=== PATIENT | female | born 1935 | race Caucasian/White ===

== ENCOUNTER 2017-10-08 15:16 | Inpatient (IN) | payer MEDICARE, BC ==
[~2017-10-08] VITALS: Ht 167.6 cm; Wt 94.1 kg
[~2017-10-08 15:16] MED LIST: BETA1TAB14 PO; CHOL100046 PO; CYAN10006 IM; DULO60CA64 PO; LEVO50TA8 PO; MULT1TAB74 PO; PREG150C PO; SIMV20TA PO
[2017-10-08 16:04] LABS: BASOPHILS % (AUTO) 0 % (0-1); EOSINOPHILS # (AUTO) 0.1 X10'3 (0-0.9); EOSINOPHILS % (AUTO) 1.1 % (0-6); HEMATOCRIT 44.1 % (35.0-45.0); HEMOGLOBIN 14.6 g/dl (12.0-16.0); LYMPHOCYTES # (AUTO) 1.9 X10'3 (1.1-4.8); LYMPHOCYTES % (AUTO) 14.3 % (21-51); MEAN CORPUSCULAR HEMOGLOBIN 29.6 PG (27.0-31.0); MEAN CORPUSCULAR VOLUME 89.6 FL (78-98); NEUTROPHILS # (AUTO) 10.6 X10'3 (1.8-7.7); NEUTROPHILS % (AUTO) 77.6 % (42-75); PLATELET COUNT 277 X10'3 (140-440); RED BLOOD COUNT 4.92 X10'6 (4.20-5.60); WHITE BLOOD COUNT 13.7 X10'3 (4.5-11.0)
[2017-10-08 16:13] LABS: PARTIAL THROMBOPLASTIN TIME 23 SECONDS (22-32)
[2017-10-08] MEDS ORDERED: HYDROcodone/acetaminophen 5mg/325mg tablet PO ONE (16:20)
[2017-10-08] MEDS ORDERED: diazepam 5mg tablet PO ONE (16:20)
[2017-10-08] MEDS ORDERED: ondansetron 4mg rapidly disintigrating tab PO ONE (16:20)
[2017-10-08] MEDS ORDERED: dexamethasone 4mg tablet PO ONE (16:20)
[2017-10-08 16:24] LABS: ALANINE AMINOTRANSFERASE 39 U/L (12-78); ALBUMIN 3.9 G/DL (3.4-5.0); ALBUMIN/GLOBULIN RATIO 1.2 (1.1-1.5); ALKALINE PHOSPHATASE 109 IU/L (46-116); ANION GAP 8 (8-16); ASPARTATE AMINO TRANSFERASE 45 U/L (10-37); BILIRUBIN,TOTAL 0.4 MG/DL (0.1-1.0); BLOOD UREA NITROGEN 15 MG/DL (7-18); BUN/CREATININE RATIO 16.7 (6.6-38.0); CHLORIDE 106 MMOL/L (99-107); ETHANOL < 0.010 GM/DL (0.0-0.010); GLUCOSE 130 MG/DL (70-104); SODIUM 145 MMOL/L (135-145); TOTAL CARBON DIOXIDE 30.8 MMOL/L (24-32); TOTAL PROTEIN 7.2 G/DL (6.4-8.2); eGFR 60 ML/MIN
[2017-10-08] MEDS ORDERED: aspirin 325mg tablet PO ONE (16:25)
[2017-10-08 18:00] LABS: URINE AMPHETAMINE SCREEN NEGATIVE (Neg); URINE BARBITUATE SCREEN NEGATIVE (Neg); URINE BENZODIAZEPINES SCREEN NEGATIVE (Neg); URINE CANNABINOID SCREEN NEGATIVE (Neg); URINE COCAINE SCREEN NEGATIVE (Neg); URINE METHADONE SCREEN NEGATIVE (Neg); URINE OPIATE SCREEN POSITIVE (Neg); URINE PHENCYCLIDINE SCREEN NEGATIVE (Neg)
[2017-10-08 18:08] LABS: OCCULT BLOOD STOOL NEGATIVE (Neg)
[2017-10-08] MEDS ORDERED: mag hydrox/Alum hydrox/simeth 30ml oral suspension PO PRN (19:30)
[2017-10-08] MEDS ORDERED: acetaminophen 325mg tablet PO PRN (19:30)
[2017-10-08] MEDS ORDERED: magnesium hydroxide 30ml (MOM) UD suspension PO PRN (19:30)
[2017-10-08] MEDS ORDERED: ondansetron/PF 4mg/2ml inj IV PRN (19:30)
[2017-10-08 19:55] LABS: HEMOGLOBIN A1C 5.7 % (4.5-6.2)
[2017-10-08 22:00] VITALS: BP 166/92
[2017-10-09] VITALS (7 sets, daily range): BP systolic 148–174; BP diastolic 71–87
[2017-10-09] MEDS: HYDROcodone/acetaminophen 10/325mg tab PO PRN ×5 (02:53→19:19)
[2017-10-09] MEDS: levoTHYROXINE 25mcg tablet PO SCH (07:19)
[2017-10-09 07:45] LABS: ALANINE AMINOTRANSFERASE 53 U/L (12-78); ALBUMIN/GLOBULIN RATIO 1.1 (1.1-1.5); ALKALINE PHOSPHATASE 102 IU/L (46-116); ANION GAP 13 (8-16); ASPARTATE AMINO TRANSFERASE 95 U/L (10-37); BILIRUBIN,TOTAL 0.5 MG/DL (0.1-1.0); BLOOD UREA NITROGEN 19 MG/DL (7-18); CALCIUM 9.7 MG/DL (8.5-10.1); CHLORIDE 105 MMOL/L (99-107); CHOL/HDL RATIO 2.9 (0.00-4.99); CHOLESTEROL 259 MG/DL (0-200); GLUCOSE 144 MG/DL (70-104); HDL CHOLESTEROL 90 MG/DL (35-60); LDL CHOLESTEROL 154 MG/DL (50-100); SODIUM 145 MMOL/L (135-145); TOTAL CARBON DIOXIDE 27.2 MMOL/L (24-32); TOTAL PROTEIN 7.5 G/DL (6.4-8.2); TRIGLYCERIDES 83 MG/DL (20-135); eGFR 53 ML/MIN
[2017-10-09 07:52] LABS: BASOPHILS % (AUTO) 0 % (0-1); EOSINOPHILS % (AUTO) 0 % (0-6); HEMATOCRIT 43.3 % (35.0-45.0); HEMOGLOBIN 15.1 g/dl (12.0-16.0); LYMPHOCYTES # (AUTO) 1.6 X10'3 (1.1-4.8); LYMPHOCYTES % (AUTO) 14.4 % (21-51); MEAN CORPUSCULAR HEMOGLOBIN 30.7 PG (27.0-31.0); MEAN CORPUSCULAR HGB CONC 34.8 % (33.0-36.5); MEAN CORPUSCULAR VOLUME 88.2 FL (78-98); MEAN PLATELET VOLUME 7.6 FL (7.4-10.4); MONOCYTES # (AUTO) 0.4 X10'3 (0-0.9); MONOCYTES % (AUTO) 3.8 % (2-12); NEUTROPHILS # (AUTO) 8.8 X10'3 (1.8-7.7); NEUTROPHILS % (AUTO) 81.8 % (42-75); PLATELET COUNT 277 X10'3 (140-440); RED BLOOD COUNT 4.91 X10'6 (4.20-5.60); RED CELL DISTRIBUTION WIDTH 13.6 % (11.5-14.5); WHITE BLOOD COUNT 10.8 X10'3 (4.5-11.0)
[2017-10-09] MEDS ORDERED: non-formulary drug (Levothyroxine Sodium 1 TAB) PO SCH (08:00)
[2017-10-09] MEDS: aspirin 81mg tab.chew PO SCH (11:16)
[2017-10-09] MEDS ORDERED: LEVO100T9 PO (12:01)
[2017-10-09] MEDS: atorvastatin 20mg tablet PO SCH (20:02)
[2017-10-10] MEDS: HYDROcodone/acetaminophen 10/325mg tab PO PRN ×4 (02:19→21:36)
[2017-10-10 04:00] VITALS: BP 153/88
[2017-10-10 05:00] VITALS: BP 139/79
[2017-10-10 06:18] LABS: BASOPHILS % (AUTO) 0 % (0-1); EOSINOPHILS # (AUTO) 0.1 X10'3 (0-0.9); EOSINOPHILS % (AUTO) 0.8 % (0-6); HEMATOCRIT 43.3 % (35.0-45.0); HEMOGLOBIN 14.4 g/dl (12.0-16.0); LYMPHOCYTES # (AUTO) 3.2 X10'3 (1.1-4.8); MEAN CORPUSCULAR HEMOGLOBIN 30.2 PG (27.0-31.0); MEAN CORPUSCULAR HGB CONC 33.2 % (33.0-36.5); MEAN CORPUSCULAR VOLUME 90.9 FL (78-98); MEAN PLATELET VOLUME 7.4 FL (7.4-10.4); MONOCYTES # (AUTO) 0.9 X10'3 (0-0.9); MONOCYTES % (AUTO) 7.1 % (2-12); NEUTROPHILS # (AUTO) 8.5 X10'3 (1.8-7.7); NEUTROPHILS % (AUTO) 67.1 % (42-75); PLATELET COUNT 250 X10'3 (140-440); RED BLOOD COUNT 4.77 X10'6 (4.20-5.60); RED CELL DISTRIBUTION WIDTH 14.4 % (11.5-14.5); WHITE BLOOD COUNT 12.7 X10'3 (4.5-11.0)
[2017-10-10 06:33] LABS: PROTHROMBIN TIME 10.2 SECONDS (9.0-12.0)
[2017-10-10 06:50] LABS: ALANINE AMINOTRANSFERASE 64 U/L (12-78); ALBUMIN 3.5 G/DL (3.4-5.0); ALBUMIN/GLOBULIN RATIO 1.2 (1.1-1.5); ALKALINE PHOSPHATASE 84 IU/L (46-116); ANION GAP 10 (8-16); ASPARTATE AMINO TRANSFERASE 111 U/L (10-37); BILIRUBIN,TOTAL 0.5 MG/DL (0.1-1.0); BLOOD UREA NITROGEN 27 MG/DL (7-18); CALCIUM 9.4 MG/DL (8.5-10.1); CHLORIDE 105 MMOL/L (99-107); GLUCOSE 107 MG/DL (70-104); POTASSIUM 3.9 MMOL/L (3.5-5.1); SODIUM 144 MMOL/L (135-145); TOTAL CARBON DIOXIDE 28.6 MMOL/L (24-32); TOTAL PROTEIN 6.5 G/DL (6.4-8.2); eGFR 53 ML/MIN
[2017-10-10] MEDS: aspirin 81mg tab.chew PO SCH (08:36)
[2017-10-10] MEDS: levoTHYROXINE 25mcg tablet PO SCH (08:36)
[2017-10-10 10:00] VITALS: BP 129/64
[2017-10-10 14:00] VITALS: BP 144/70
[2017-10-10 18:00] VITALS: BP 150/73
[2017-10-10] MEDS: atorvastatin 20mg tablet PO SCH (21:01)
[2017-10-10 22:00] VITALS: BP 141/66
[2017-10-10] MEDS: LORazepam 0.5 MG tablet PO PRN (22:45)
[2017-10-11] MEDS: HYDROcodone/acetaminophen 10/325mg tab PO PRN ×3 (01:36→11:28)
[2017-10-11 05:00] VITALS: BP 157/93
[2017-10-11] MEDS: levoTHYROXINE 25mcg tablet PO SCH (07:14)
[2017-10-11] MEDS: LORazepam 0.5 MG tablet PO PRN ×2 (07:14→11:28)
[2017-10-11 07:15] LABS: BASOPHILS % (AUTO) 0.4 % (0-1); EOSINOPHILS # (AUTO) 0.2 X10'3 (0-0.9); EOSINOPHILS % (AUTO) 1.4 % (0-6); HEMATOCRIT 46.4 % (35.0-45.0); HEMOGLOBIN 15.4 g/dl (12.0-16.0); LYMPHOCYTES # (AUTO) 3.6 X10'3 (1.1-4.8); LYMPHOCYTES % (AUTO) 31.8 % (21-51); MEAN CORPUSCULAR HEMOGLOBIN 30.2 PG (27.0-31.0); MEAN CORPUSCULAR HGB CONC 33.3 % (33.0-36.5); MEAN CORPUSCULAR VOLUME 90.7 FL (78-98); MEAN PLATELET VOLUME 7.2 FL (7.4-10.4); MONOCYTES # (AUTO) 0.9 X10'3 (0-0.9); NEUTROPHILS # (AUTO) 6.6 X10'3 (1.8-7.7); NEUTROPHILS % (AUTO) 58.4 % (42-75); PLATELET COUNT 285 X10'3 (140-440); RED BLOOD COUNT 5.12 X10'6 (4.20-5.60); WHITE BLOOD COUNT 11.3 X10'3 (4.5-11.0)
[2017-10-11 07:30] LABS: PROTHROMBIN TIME 9.9 SECONDS (9.0-12.0)
[2017-10-11 07:36] LABS: ALANINE AMINOTRANSFERASE 59 U/L (12-78); ALBUMIN 3.8 G/DL (3.4-5.0); ALBUMIN/GLOBULIN RATIO 1.1 (1.1-1.5); ALKALINE PHOSPHATASE 95 IU/L (46-116); ANION GAP 7 (8-16); ASPARTATE AMINO TRANSFERASE 63 U/L (10-37); BILIRUBIN,TOTAL 0.5 MG/DL (0.1-1.0); BLOOD UREA NITROGEN 27 MG/DL (7-18); BUN/CREATININE RATIO 24.5 (6.6-38.0); CALCIUM 9.7 MG/DL (8.5-10.1); CHLORIDE 106 MMOL/L (99-107); GLUCOSE 129 MG/DL (70-104); POTASSIUM 4.3 MMOL/L (3.5-5.1); SODIUM 143 MMOL/L (135-145); TOTAL CARBON DIOXIDE 30.5 MMOL/L (24-32); TOTAL PROTEIN 7.2 G/DL (6.4-8.2); eGFR 48 ML/MIN
[2017-10-11] MEDS ORDERED: clopidogrel 75mg tablet PO SCH (08:00)
[2017-10-11 12:25] VITALS: BP 163/86
== END 2017-10-11 12:10 | DRG 64 ==
LOC: ER 15:16 → ED HOLD 19:26 → ORTHO 4S 20:19
PROVIDERS: ADMIT Internal Medicine; ATTEND Internal Medicine
DX: I63.9 Cerebral infarction, unspecified (principal); G93.40 Encephalopathy, unspecified; G81.94 Hemiplegia, unspecified affecting left nondominant side; E03.9 Hypothyroidism, unspecified; E78.00 Pure hypercholesterolemia, unspecified; E78.5 Hyperlipidemia, unspecified; G89.29 Other chronic pain; I10 Essential (primary) hypertension; K52.9 Noninfective gastroenteritis and colitis, unspecified; M54.41 Lumbago with sciatica, right side; Z60.2 Problems related to living alone; Z96.642 Presence of left artificial hip joint; Z96.651 Presence of right artificial knee joint; Z79.899 Other long term (current) drug therapy; Z79.01 Long term (current) use of anticoagulants; Z79.82 Long term (current) use of aspirin
CPT/HCPCS: 36415; 70450; 70551; 71045; 80053; 80061; 80305; 80320; 82272; 82948; 83036; 84439; 84443; 85025; 85610; 85730; 87070; 92616; 93005; 93306; 93880; 97110; 97116; 97162; 97530; 99285; A4315; A6212; J8540

== ENCOUNTER 2019-08-26 22:05 | Emergency (ER) | payer MEDICARE, BC ==
[~2019-08-26] VITALS: Ht 167.6 cm; Wt 84.1 kg
[~2019-08-26 22:05] MED LIST changes: -DULO60CA64 PO; +DULO60CA65 PO; +LEVO100T9 PO; -LEVO50TA8 PO; -PREG150C PO
[2019-08-26] MEDS ORDERED: proparacaine 0.5% ophthalmic drops 15ml EACHEYE ONE (23:00)
[2019-08-26 23:13] VITALS: BP 127/62
[2019-08-26] MEDS ORDERED: ciprofloxacin 0.3% 2.5ml ophthalmic solution LEFTEYE ONE (23:40)
[2019-08-26] MEDS ORDERED: CIPR2.5D18 EACHEYE (23:43)
== END 2019-08-27 00:04 | disposition home or self-care (01) ==
LOC: ER 22:06
DX: H59.89 Other postprocedural complications and disorders of eye and adnexa, not elsewhere classified (principal); H16.002 Unspecified corneal ulcer, left eye; E78.00 Pure hypercholesterolemia, unspecified; E03.9 Hypothyroidism, unspecified; G89.29 Other chronic pain; Z98.890 Other specified postprocedural states; Z90.89 Acquired absence of other organs; Z60.2 Problems related to living alone; Z86.73 Personal history of transient ischemic attack (TIA), and cerebral infarction without residual deficits; Z79.899 Other long term (current) drug therapy; Y83.8 Other surgical procedures as the cause of abnormal reaction of the patient, or of later complication, without mention of misadventure at the time of the procedure
CPT/HCPCS: 99284; 99285

== ENCOUNTER 2021-06-10 21:22 | Emergency (ER) | payer BC, MEDICARE ==
[~2021-06-10] VITALS: Ht 167.6 cm; Wt 99.0 kg
[~2021-06-10 21:22] MED LIST changes: +CIPR2.5D21 EACHEYE; +MULT-620 PO; -MULT1TAB74 PO
[2021-06-10] MEDS ORDERED: ondansetron/PF 4mg/2ml inj IV ONE (22:40)
[2021-06-10] MEDS ORDERED: normal saline 1000ml 1,000 ML IV ONE (22:40)
[2021-06-10] MEDS ORDERED: morphine 4 MG/ML inj SYRINge IV ONE (22:40)
[2021-06-10 23:02] LABS: BASOPHILS # (AUTO) 0.2 X10'3 (0-0.2); EOSINOPHILS # (AUTO) 0.1 X10'3 (0-0.9); EOSINOPHILS % (AUTO) 0.4 % (0-6); HEMATOCRIT 47.4 % (35.0-45.0); HEMOGLOBIN 15.8 g/dl (12.0-16.0); LYMPHOCYTES % (AUTO) 13.9 % (21-51); MEAN CORPUSCULAR HEMOGLOBIN 30.7 PG (27.0-31.0); MEAN CORPUSCULAR HGB CONC 33.4 g/dL (33.0-36.5); MEAN CORPUSCULAR VOLUME 91.7 FL (78-98); MEAN PLATELET VOLUME 7.7 FL (7.4-10.4); MONOCYTES # (AUTO) 0.8 X10'3 (0-0.9); MONOCYTES % (AUTO) 5.6 % (2-12); NEUTROPHILS # (AUTO) 11.6 X10'3 (1.8-7.7); NEUTROPHILS % (AUTO) 79.1 % (42-75); PLATELET COUNT 327 X10'3 (140-440); RED BLOOD COUNT 5.17 X10'6 (4.20-5.60); RED CELL DISTRIBUTION WIDTH 13.5 % (11.5-14.5); WHITE BLOOD COUNT 14.7 X10'3 (4.5-11.0)
[2021-06-10 23:21] LABS: ALANINE AMINOTRANSFERASE 16 U/L (12-78); ALBUMIN 3.9 G/DL (3.4-5.0); ALBUMIN/GLOBULIN RATIO 1.2 (1.1-1.5); ALKALINE PHOSPHATASE 84 IU/L (46-116); ANION GAP 10 (8-16); ASPARTATE AMINO TRANSFERASE 14 U/L (10-37); BILIRUBIN,DIRECT 0.1 MG/DL (0-0.3); BILIRUBIN,TOTAL 0.4 MG/DL (0.1-1.0); BLOOD UREA NITROGEN 20 MG/DL (7-18); BUN/CREATININE RATIO 19.4 (6.6-38.0); CHLORIDE 106 MMOL/L (99-107); CREATININE 1.03 MG/DL (0.40-0.90); GLUCOSE 127 MG/DL (70-104); LIPASE 146 U/L (73-393); POTASSIUM 3.4 MMOL/L (3.5-5.1); SODIUM 144 MMOL/L (135-145); TOTAL PROTEIN 7.1 G/DL (6.4-8.2); eGFR 51 ML/MIN
[2021-06-10] MEDS ORDERED: diphenhydrAMINE 25mg capsule PO ONE (23:30)
[2021-06-10] MEDS ORDERED: metoclopramide 5 mg/ml inj IM ONE (23:30)
--- NOTE | 2021-06-11 00:01 | NUR ---
PER INSURANCE ACCOUNT MANAGER; NO ZOFRAN/MORPHINE/IVF FOR THIS PT; MD IS READY FOR DC
[2021-06-11 03:54] LABS: COLOR,URINE YELLOW (Yellow); UA COLLECTION TYPE STRAIGHT CATH
[2021-06-11 03:55] LABS: CLARITY,URINE CLEAR (Clear); GLUCOSE, URINE NEGATIVE (Neg); KETONES,URINE 80 mg/dl (Neg); PH,URINE 6.5 (4.8-8.0); PROTEIN,URINE 30 mg/dl (Neg)
[2021-06-11 03:56] LABS: LEUKOCYTE ESTERASE ,URINE NEGATIVE (Neg); NITRITES, URINE NEGATIVE (Neg); OCCULT BLOOD,URINE TRACE-INTACT (Neg); UROBILINOGEN,URINE 0.2 E.U/dL (0.2-1.0)
[2021-06-11 04:00] LABS: WBC,URINE NONE SEEN /HPF (0-4)
[2021-06-11 04:01] LABS: BACTERIA,URINE NONE SEEN /HPF (Neg); RBC,URINE NONE SEEN /HPF (0-2); SQUAMOUS EPITHELIAL CELL,UR FEW /LPF (FEW)
[2021-06-11] MEDS ORDERED: iohexol 300mg/ml 100ml inj. ONE (04:34)
[2021-06-11] MEDS ORDERED: normal saline 1000ml 1,000 ML IVB ONE (04:40)
[2021-06-11 08:51] VITALS: BP 124/62
[2021-06-11] MEDS ORDERED: ondansetron/PF 4mg/2ml inj IV ONE (09:05)
[2021-06-11] MEDS ORDERED: ONDA4TAB6 PO (09:05)
[2021-06-11] MEDS ORDERED: ondansetron 4mg rapidly disintigrating tab ONE (09:25)
== END 2021-06-11 09:21 | disposition home or self-care (01) ==
LOC: ER 21:23
DX: R51.9 Headache, unspecified (principal); Z20.822 Contact with and (suspected) exposure to COVID-19; R11.2 Nausea with vomiting, unspecified; R19.7 Diarrhea, unspecified; M19.90 Unspecified osteoarthritis, unspecified site; E78.00 Pure hypercholesterolemia, unspecified; E03.9 Hypothyroidism, unspecified; G89.29 Other chronic pain; Z87.440 Personal history of urinary (tract) infections; Z86.73 Personal history of transient ischemic attack (TIA), and cerebral infarction without residual deficits; Z86.2 Personal history of diseases of the blood and blood-forming organs and certain disorders involving the immune mechanism; Z79.2 Long term (current) use of antibiotics; Z79.899 Other long term (current) drug therapy; W19.XXXA Unspecified fall, initial encounter; Z91.81 History of falling; Y93.89 Activity, other specified; Y92.89 Other specified places as the place of occurrence of the external cause; Y99.8 Other external cause status
CPT/HCPCS: 36415; 70450; 71045; 72125; 74177; 80048; 80076; 81001; 83690; 84145; 85025; 87635; 96372; 96374; 99285; C9803; J2765; J7030; Q0163; Q9967